=== PATIENT | female | born 1995 | race Two or more races ===

== ENCOUNTER 2025-01-28 16:05 | Emergency (ER) | payer MEDICAID ==
[~2025-01-28] VITALS: Ht 177.8 cm; Wt 113.4 kg
[2025-01-28] MEDS ORDERED: ONDANSETRON HCL/PF 4 MG/2 ML VIAL ONE (16:49)
[2025-01-28] MEDS ORDERED: ONDA4TAB5 PO (16:50)
[2025-01-28] MEDS: IV NS 0.9% 1,000 ML BAG IV ONE (17:07)
[2025-01-28] MEDS: ONDANSETRON HCL/PF 4 MG/2 ML VIAL IVP ONE (17:07)
[2025-01-28 17:14] LABS: BASOPHILS % (AUTO) 0.3 % (0.0-2.0); HEMATOCRIT 40 % (33-45); HEMOGLOBIN 13.5 g/dL (11.5-14.8); LYMPHOCYTES # (AUTO) 0.8 K/uL (0.8-4.8); LYMPHOCYTES % (AUTO) 7.4 % (20.0-44.0); MEAN CORPUSCULAR HEMOGLOBIN 34 PG (26.0-33.0); MEAN CORPUSCULAR HGB CONC 34 g/dl (31.0-36.0); MEAN CORPUSCULAR VOLUME 99 fL (82-100); MONOCYTES # (AUTO) 0.5 K/uL (0.1-1.30); MONOCYTES % (AUTO) 4.7 % (2.0-12.0); NEUTROPHILS # (AUTO) 9.1 K/uL (1.8-8.9); NEUTROPHILS % (AUTO) 87.6 % (43.0-81.0); PLATELET COUNT (AUTO) 315 K/uL (150-450); RED BLOOD CELL COUNT(AUTO) 4.02 MIL/uL (4.0-5.2); RED CELL DISTRIBUTION WIDTH 13.6 % (11.5-15.0); WHITE BLOOD COUNT (AUTO) 10.4 K/uL (4.3-11.0)
[2025-01-28 17:22] LABS: CALCIUM, SERUM 8.6 mg/dL (8.5-10.1); CREATININE 0.9 mg/dL (0.6-1.3); POTASSIUM 3.6 mmol/L (3.5-5.1)
[2025-01-28 18:19] VITALS: BP 124/88; TEMP 98.1; O2SAT 98
== END 2025-01-28 18:21 | disposition home or self-care (01) ==
LOC: ER 16:11
DX: R11.2 Nausea with vomiting, unspecified (principal); R07.89 Other chest pain; R10.2 Pelvic and perineal pain; F19.10 Other psychoactive substance abuse, uncomplicated
CPT/HCPCS: 99283; 96374; 96361; 85025; 80048; 36415; 84702; J2405; J7030